=== PATIENT | male | born 1965 | race Caucasian/White ===

== ENCOUNTER 2017-07-29 14:22 | Emergency (ER) | payer BC ==
[~2017-07-29] VITALS: Ht 172.7 cm; Wt 77.6 kg
[~2017-07-29 14:22] MED LIST: Aspirin E.C. PO; CIPRO500 MG PO; FLAGYL500 MG PO; MULTIVITAMIN1 EAC1 PO; NORCO 5/3251 TABLET PO; Vicodin,Norco 5/325 PO; oxyCODONE PO
[2017-07-29 15:51] LABS: HEMATOCRIT 46.3 % (38.0-50.0); MCH 30.4 PG (29.0-34.0); MCHC 34.1 G/DL (30.0-36.0); MEAN PLAT.VOLUME 9.4 uM^3 (9.0-12.4); PLATELET COUNT 223 K/uL (156-360); RBC DIS.WIDTH-CV 11.9 % (11.8-14.6); RBC DIS.WIDTH-SD 38.6 % (39-53); WHITE BLOOD COUNT 13.3 K/uL (4.1-10.2)
[2017-07-29 16:00] LABS: CHLORIDE 99 mEq/L (99-109); SODIUM 134 mEq/L (136-147)
[2017-07-29 16:02] LABS: GLUCOSE 122 mg/dL (70-99)
[2017-07-29 16:04] LABS: ANION GAP 11 MEQ/L (2-14); TOTAL BILIRUBIN 0.7 mg/dL (0.0-1.0)
[2017-07-29 16:06] LABS: ALKALINE PHOSPHATASE 61 IU/L (3-129); GFR ESTIMATE (CALCULATED) > 59 mL/min/
[2017-07-29 16:07] LABS: UREA NITROGEN (BUN) 14 mg/dL (9-23)
[2017-07-29 16:09] LABS: LIPASE 5 U/L (1.0-51.0)
[2017-07-29 17:32] LABS: ADD MIUA? YES; BILIRUBIN NEGATIVE; BLOOD SMALL; COLOR STRAW ((YELLOW)); GLUCOSE (STRIP) NEGATIVE; KETONES NEGATIVE; LEUKOCYTES NEGATIVE; NITRITE NEGATIVE; PROTEIN (STRIP) NEGATIVE; SPECIFIC GRAVITY 1.025 (1.000-1.030); UROBILINOGEN 0.2 MG/DL (0.2-1.0)
[2017-07-29 17:39] LABS: BACTERIA NONE SEEN /HPF; EPITHELIAL CELLS NONE SEEN /HPF; MUCUS TRACE /LPF; RED BLOOD CELLS 0-5 /HPF (0-5); UCUL ADDED? NO; WHITE BLOOD CELLS 0-5 /HPF (0-5)
[2017-07-29] MEDS ORDERED: BENTYL10 MG PO (17:46)
[2017-07-29] MEDS ORDERED: ZOFRAN ODT4 MG PO (17:46)
[2017-07-29] MEDS ORDERED: CIPRO500 MG PO (17:46)
[2017-07-29 18:12] VITALS: BP 111/61
== END 2017-07-29 18:14 | disposition home or self-care (01) ==
LOC: EME 14:22
DX: N41.0 Acute prostatitis (principal); R10.32 Left lower quadrant pain; R11.0 Nausea; Z90.49 Acquired absence of other specified parts of digestive tract
CPT/HCPCS: 74177; 80053; 81003; 83690; 85027; 99281; 99285; J1200; J2405; J3010; J7030